=== PATIENT | male | born 1955 | race Two or more races ===

== ENCOUNTER 2018-11-08 08:54 | Emergency (ER) | payer SELFPAY ==
[~2018-11-08] VITALS: Ht 182.9 cm; Wt 90.0 kg
[2018-11-08 08:59] VITALS: Ht 182.9 cm; Wt 90.0 kg
--- NOTE | 2018-11-08 10:44 | ERD ---
ER Documentation Chief Complaint Chief Complaint abd pain and diarrhea for the past few days, no distress now HPI This is a 63-year-old male with a past medical history of hypertension, COPD, bipolar disorder, schizophrenia who is presenting for a few episodes of nausea, a few episodes of nonbilious nonbloody vomiting and a few episodes of loose watery nonbloody stool. The patient reports that he has had these symptoms chronically, and this feels like an exacerbation of his symptoms in the past. The patient is currently in no distress, and reports that it feels like his symptoms are improving. The patient has no abdominal pain. He has no dysuria or hematuria or urgency or frequency. The patient does report homelessness, but he does not want resources. The patient does report a history of psychiatric illness. He currently denies any suicidal or homicidal ideations. He denies any auditory or visual hallucinations. The patient denies feeling sick recently. The patient denies fever or chills. The patient has had no headache or vision changes. The patient does not endorse neck or back pain. The patient denies lightheadedness or dizziness. The patient has had no chest pain or trouble breathing. The patient has had no focal deficits. The patient has had no weakness or numbness or tingling to the face or extremities. ROS All systems reviewed and are negative except as per history of present illness. Allergies Allergies: Coded Allergies: pseudoephedrine (Verified Allergy, Unknown, TACHYCARDIA, 11/08/18) Uncoded Allergies: TURKEY (Allergy, Unknown, 11/08/18) PMhx/Soc History of Surgery: Yes (BACK , HERNIA REPAIR ) Anesthesia Reaction: No Hx Neurological Disorder: No Hx Respiratory Disorders: Yes (COPD , ASTHMA ) Hx Cardiac Disorders: Yes (HTN ) Hx Psychiatric Problems: Yes (BIPOLAR , SCHIZOPHRENIA ) Hx Miscellaneous Medical Probl: Yes (DM ) Hx Alcohol Use: Yes Hx Substance Use: Yes (COCAINE ) Hx Tobacco Use: Yes Smoking Status: Current every day smoker FmHx Family History: No diabetes Physical Exam Vitals Vital Signs Date Temp Pulse Resp B/P (MAP) Pulse Ox O2 O2 Flow FiO2 Time Delivery Rate 11/08/18 98.2 89 20 159/87 96 08:59 (111) Physical Exam Const: No apparent distress, well-developed, well-nourished Head: Normocephalic, Atraumatic Eyes: Normal Conjunctiva. Extraocular movements intact. Pupils equal, round and reactive to light ENT: Normal External Ears, Nose and Mouth. Neck: Full range of motion. No meningismus. Resp: Clear to auscultation bilaterally, No wheezes, rales or rhonchi Cardio: Regular rate and rhythm. No murmurs, rubs or gallops Abd: Soft, non tender, non distended. Normal bowel sounds Skin: No petechiae or rashes Back: No midline tenderness. No CVA tenderness Ext: No cyanosis, or edema Neur: Awake and alert, oriented 4. Cranial nerves intact. No facial droop. Normal strength, sensation and coordination. Psych: Normal Mood and Affect Result Diagram: 11/08/1892211/08/18922 Results 24 hrs Laboratory Tests Test 11/08/18 09:23 White Blood Count 5.2 10^3/ul Red Blood Count 3.71 10^6/ul Hemoglobin 11.0 g/dl Hematocrit 34.7 % Mean Corpuscular Volume 93.5 fl Mean Corpuscular Hemoglobin 29.6 pg Mean Corpuscular Hemoglobin Concent 31.7 g/dl Red Cell Distribution Width 15.4 % Platelet Count 251 10^3/UL Mean Platelet Volume 10.3 fl Immature Granulocytes % 0.200 % Neutrophils % 58.7 % Lymphocytes % 31.9 % Monocytes % 6.5 % Eosinophils % 2.5 % Basophils % 0.2 % Nucleated Red Blood Cells % 0.0 /100WBC Immature Granulocytes # 0.010 10^3/ul Neutrophils # 3.1 10^3/ul Lymphocytes # 1.7 10^3/ul Monocytes # 0.3 10^3/ul Eosinophils # 0.1 10^3/ul Basophils # 0.0 10^3/ul Nucleated Red Blood Cells # 0.0 10^3/ul Urine Color YELLOW Urine Clarity SLIGHTLY CLOUDY Urine pH 7.0 Urine Specific [place] 1.018 Urine Ketones NEGATIVE mg/dL Urine Nitrite NEGATIVE mg/dL Urine Bilirubin NEGATIVE mg/dL Urine Urobilinogen NEGATIVE mg/dL Urine Leukocyte Esterase NEGATIVE Isma/ul Urine Microscopic RBC 1 /HPF Urine Microscopic WBC 1 /HPF Urine Hemoglobin NEGATIVE mg/dL Urine Glucose NEGATIVE mg/dL Urine Total Protein NEGATIVE mg/dl Sodium Level 143 mmol/L Potassium Level 4.2 mmol/L Chloride Level 106 mmol/L Carbon Dioxide Level 29 mmol/L Anion Gap 8 Blood Urea Nitrogen 14 mg/dl Creatinine 0.77 mg/dl Est Glomerular Filtrat Rate mL/min > 60 mL/min Glucose Level 143 mg/dl Calcium Level 9.6 mg/dl Total Bilirubin 0.0 mg/dl Direct Bilirubin 0.00 mg/dl Indirect Bilirubin 0.0 mg/dl Aspartate Amino Transf (AST/SGOT) 37 IU/L Alanine Aminotransferase (ALT/SGPT) 16 IU/L Alkaline Phosphatase 92 IU/L Total Protein 7.2 g/dl Albumin 4.2 g/dl Globulin 3.00 g/dl Albumin/Globulin Ratio 1.40 Lipase 86 U/L Procedures/MDM MDM The patient's presentation warrants further investigation. Previous medical records, if available, were reviewed. LABS The patient's laboratory testing was obtained and reviewed. No emergent treatment was required unless described below. CBC: No E/o of systemic infection or severe anemia or thrombocytopenia. Mild normocytic anemia, not emergent. Chemistry: No E/o severe acidosis or alkalosis or renal failure or liver disease or diabetic ketoacidosis Lipase: No E/o pancreatitis Urine: No E/o acute infection or hematuria TREATMENT/DISPOSITION The patient presents with abdominal pain. He reports nausea, vomiting and diarrhea. He does not endorse any bloody vomiting or bloody stooling. I have low suspicion for a GI bleed. The patient does not have any evidence of peritonitis. The patient does not have clinical symptoms concerning for mese nteric ischemia or ischemic colitis. The patient does not have right upper quadrant tenderness, and I have low suspicion for gallstones, cholecystitis or biliary colic. The patient does not have any epigastric pain. I have low suspicion for gastritis, PUD or GERD. The patient does not have left upper quadrant tenderness. I have low suspicion for pancreatitis. The patient does not have any right lower quadrant tenderness, or periumbilical tenderness. I have low suspicion for appendicitis. The patient does not have suprapubic tenderness. I have decreased suspicion for cystitis. The patient does not have any left lower quadrant tenderness, and I have low suspicion for diverticulosis or diverticulitis. The patient does not have any flank tenderness. The patient does not have gross hematuria. I have decreased suspicion for nephrolithiasis or renal colic. The patient does not have any palpable pulsatile mass or severe abdominal pain radiating to the back. I have low suspicion for aortic aneurysm, dissection or rupture. The patient was offered Zofran and IV fluids in the emergency department, but he declined. His symptoms drastically improved, and the patient wanted to be di scharged. The patient reports that he needs to make a train. The patient does have a history of psychiatric illness, but the patient does not have symptoms concerning for acute psychosis. I do not believe the patient requires further assessment from a psychiatric standpoint. The patient may foll ow-up as needed with his physicians in an outpatient setting. The patient is homeless. The patient is medically stable for discharge. Social work was called to evaluate the patient. The patient does not want any homeless resources at this time. Upon reevaluation of the patient, symptoms have improved. No emergent diagnoses were identified. At this time, I feel that the patient stable for discharge. The patient was instructed to follow-up with a primary care physician in 1-3 days. The patient will be given strict precautions with which to return to the emergency department. Prescriptions: None The patient's blood pressure was elevated at greater than 120/80 while in the emergency department. The patient was otherwise stable with no evidence of hypertensive urgency or emergency. The patient does not require admission for blood pressure control. I have discussed with the patient the risks of hypertension. I have instructed the patient to return to the ER for any new or worsening symptoms including chest pain, shortness of breath, headache, blurred vision, confusion, nausea, vomiting or LOC. I have advised the patient to follow up with the primary care physician for outpatient monitoring and treatment for hypertension in 1-3 days. Disclaimer: Inadvertent spelling and grammatical errors are likely due to EHR/dictation software use and do not reflect on the overall quality of patient care. Note that the electronic time recorded on this note does not necessarily reflect the actual time of the patient encounter. Departure Diagnosis: Primary Impression: Nausea vomiting and diarrhea Additional Impressions: Abdominal cramping Normocytic anemia Condition: Stable TANIKA SILVA MD Nov 08, 2018 10:44
[2018-11-08 10:49] VITALS: BP 143/78; PULSE 78; RESP 18
== END 2018-11-08 10:55 | disposition home or self-care (01) ==
LOC: E/R 08:54
DX: R11.2 Nausea with vomiting, unspecified (principal); R19.7 Diarrhea, unspecified; D64.9 Anemia, unspecified; I10 Essential (primary) hypertension; J44.9 Chronic obstructive pulmonary disease, unspecified; J45.909 Unspecified asthma, uncomplicated; E11.9 Type 2 diabetes mellitus without complications; F17.210 Nicotine dependence, cigarettes, uncomplicated
CPT/HCPCS: 36415; 80053; 81001; 81003; 83690; 85025; 99283

== ENCOUNTER 2019-03-12 05:55 | Emergency (ER) | payer MEDICARE, OTHER ==
[~2019-03-12] VITALS: Ht 167.6 cm; Wt 90.9 kg
[2019-03-12 06:09] VITALS: BP 141/84; PULSE 96; RESP 18; Ht 167.6 cm; Wt 90.9 kg
--- NOTE | 2019-03-12 06:52 | PSY ---
Date/Time of Note Date/Time of Note DATE: 03/12/19 TIME: 06:43 Psychiatric Subjective Eval Consent Pt consented to telemedicine: Yes Subjective Evaluation Patient location: emergency Chief Complaint: [id number],cut self w/ razor blade,out of psych meds,hx bipolar,PTSD Medical history Problems Medical Problems: (1) Abdominal cramping Status: Acute (2) Nausea vomiting and diarrhea Status: Acute (3) Normocytic anemia Status: Acute Allergies: Coded Allergies: pseudoephedrine (Verified Allergy, Unknown, TACHYCARDIA, 11/08/18) turkey (Verified Allergy, Unknown, 03/12/19) Assessment and Plan Recommendation/Plan Discharge Disposition: Psychiatric inpatient Legal Status: Place involuntary hold Assessment Additional comments: IDENTIFYING INFORMATION: 63 year old CM patient who is currently located at the hospital and for whom psychiatric consultation was requested. SOURCES OF INFORMATION: The patient who appears to be somewhat reliable and the medical records; the nursing staff. CHIEF COMPLAINT: "voices". HISTORY OF PRESENT ILLNESS: The patient was interviewed via telemedicine in the presence of and under the supervision of nursing staff of the hospital. The consent to conducting this interview via telemedicine was obtained by the nursing staff at the hospital. LIAT Hamilton reports that the patient presented with AH telling him to hurt himself. The patient reports having AH telling him to cut himself, burn things and . Admits to paranoid delusions. The patient denies using alcohol heavily or regularly. The patient reports using meth in the recent past. Last use was 2 weeks ago. The patient denies using any other substances. In terms of past psychiatric history, the patient reports having a history of past psychiatric hospitalizations. The patient reports having a history of past suicide attempts. PAST MEDICAL HISTORY: none. CURRENT MEDICATIONS: depakote, seroquel, haldol, trazodone- noncompliant since 1 week ago. ALLERGIES TO MEDICATIONS: pseudoephedine. LABORATORY TESTS: pending. SOCIAL HISTORY: homeless, on disability, , lost one son of a drug overdose. REVIEW OF SYSTEMS: Constitutional (e.g., fever, weight loss): negative; Eyes, Ears, Nose, Mouth, Throat: negative; Cardiovascular: negative; Respiratory: negative; Gastrointestinal: negative; Genitourinary: negative; Musculoskeletal: negative; Integumentary (skin and/or breast): negative; Neurological: negative; Psychiatric: as per HPI; Endocrine: negative; Hematologic/Lymphatic: negative; Allergic/Immunologic: negative. MENTAL STATUS EXAMINATION: General Appearance and Behavior: Calm, cooperative with the interview, pleasant with the current interviewer, makes fair eye contact, fairly groomed, no abnormal movements noted, Speech: Regular rate, regular rhythm, normal latency, normal volume, somewhat decreased amount, Flow of thought: sequential, logical, goal-directed, Content of thought: + auditory hallucinations, no visual hallucinations, + delusions, positive for suicidal ideation; no homicidal ideation, Mood: "depressed", Affect: dysthymic, dysphoric, not reactive, Attention: normal based on the interview, Insight: fair, Judgment: poor, Memory: normal based on the interview, Sensorium: alert and oriented to person, place and date. ASSESSMENT: The patient's presentation and history are consistent with the diagnosis of unspecified psychotic disorder, stimulant use disorder. The patient presents with depressive and psychotic symptoms in the context of medication noncompliance, psychosocial stressors and substance use. PLAN: - Medication management: Would start Seroquel 100 mg by mouth at bedtime, Depakote 500 mg by mouth at bedtime. Would start haloperidol 5 mg IM PRN severe agitation q4 hours. Would start diphenhydramine 50 mg IM PRN severe agitation q4 hours. Would start lorazepam 2 mg IM PRN severe agitation q4 hours Will defer to the inpatient psychiatry team for other medication changes. - Labs: Please check CBC, CMP, Alcohol level, UDS. - Psychotherapy: Provided supportive psychotherapy and psychoeducation. - Disposition: Would recommend involuntary admission to the inpatient psychiatric unit given the severity of the patient's psychiatric condition and the fact that the patient is an imminent danger to self and/or others so long as the patient has been cleared medically for admission to psychiatry. Inpatient psychiatric admission is at this time the least restrictive environment where the patient can receive the psychiatric care that is needed. Would place on suicide precautions. The patient fulfills criteria for being placed on an involuntary hold for being a danger to self or others or gravely disabled due to a psychiatric disorder. Discussed about the above plan with Dr. Neville. RAMU KIRKLAND MD Mar 12, 2019 06:52
--- NOTE | 2019-03-12 07:10 | ERD ---
ER Documentation Chief Complaint Chief Complaint [id number],cut self w/ razor blade,out of psych meds,hx bipolar,PTSD HPI 63-year-old gentleman history of bipolar disorder, schizoaffective disorder presents to the emergency room with a plan for suicide. The patient states that his hearing voices, they are telling to hurt himself. He has suicidal ideation with a plan to cut himself with a razor. He was found with a razor at a local restaurant. Patient denies any fevers, chills, chest pain, shortness of breath. He feels like he needs psychiatric help. ROS All systems reviewed and are negative except as per history of present illness. Allergies Allergies: Coded Allergies: pseudoephedrine (Verified Allergy, Unknown, TACHYCARDIA, 11/08/18) turkey (Verified Allergy, Unknown, 03/12/19) PMhx/Soc History of Surgery: Yes (BACK , HERNIA REPAIR ) Anesthesia Reaction: No Hx Neurological Disorder: No Hx Respiratory Disorders: Yes (COPD , ASTHMA ) Hx Cardiac Disorders: Yes (HTN ) Hx Psychiatric Problems: Yes (BIPOLAR , SCHIZOPHRENIA ) Hx Miscellaneous Medical Probl: Yes (DM ) Hx Alcohol Use: Yes Hx Substance Use: Yes (COCAINE ) Hx Tobacco Use: Yes FmHx Family History: No diabetes Physical Exam Vitals Vital Signs Date Temp Pulse Resp B/P (MAP) Pulse Ox O2 O2 Flow FiO2 Time Delivery Rate 03/12/19 98.4 96 18 141/84 96 06:09 (103) Physical Exam General: Well developed, well nourished, no acute distress Head: Normocephalic, atraumatic. Eyes: EOM intact ENT: Moist mucous membranes Neck: Full ROM Respiratory: No respiratory distress Cardiovascular: Well perfused distally Abdominal: Nondistended : Deferred MSK: No edema, no unilateral swelling, 5/5 strength Neurologic: Alert and oriented, moving all extremities, normal speech, steady gait Skin: No rash Psych: Moderate insight, auditory hallucinations, suicidal ideation with plan Result Diagram: 03/12/19 0740 03/12/19 0740 Results 24 hrs Laboratory Tests Test 03/12/19 07:40 White Blood Count 5.2 10^3/ul Red Blood Count 3.78 10^6/ul Hemoglobin 10.7 g/dl Hematocrit 33.2 % Mean Corpuscular Volume 87.8 fl Mean Corpuscular Hemoglobin 28.3 pg Mean Corpuscular Hemoglobin Concent 32.2 g/dl Red Cell Distribution Width 15.2 % Platelet Count 203 10^3/UL Mean Platelet Volume 10.9 fl Immature Granulocytes % 0.400 % Neutrophils % 66.6 % Lymphocytes % 22.8 % Monocytes % 9.0 % Eosinophils % 1.0 % Basophils % 0.2 % Nucleated Red Blood Cells % 0.0 /100WBC Immature Granulocytes # 0.020 10^3/ul Neutrophils # 3.5 10^3/ul Lymphocytes # 1.2 10^3/ul Monocytes # 0.5 10^3/ul Eosinophils # 0.1 10^3/ul Basophils # 0.0 10^3/ul Nucleated Red Blood Cells # 0.0 10^3/ul Sodium Level 144 mmol/L Potassium Level 4.1 mmol/L Chloride Level 105 mmol/L Carbon Dioxide Level 30 mmol/L Anion Gap 9 Blood Urea Nitrogen 22 mg/dl Creatinine 0.63 mg/dl Est Glomerular Filtrat Rate mL/min > 60 mL/min Glucose Level 133 mg/dl Calcium Level 9.4 mg/dl Total Bilirubin 0.3 mg/dl Direct Bilirubin 0.00 mg/dl Indirect Bilirubin 0.3 mg/dl Aspartate Amino Transf (AST/SGOT) 15 IU/L Alanine Aminotransferase (ALT/SGPT) 11 IU/L Alkaline Phosphatase 70 IU/L Total Protein 7.0 g/dl Albumin 3.9 g/dl Globulin 3.10 g/dl Albumin/Globulin Ratio 1.25 Ethyl Alcohol Level < 10.0 mg/dl Current Medications Medications Dose Sig/Gabriele Start Time Status Last (Trade) Ordered Route PRN Stop Time Admin Dose Reason Admin Quetiapine 100 mg QHS PO 03/12/19 Fumarate 21:00 (Seroquel) Valproic 500 mg QHS PO 03/12/19 Acid 21:00 (Depakene) Procedures/MDM EKG/DIAGNOSTIC IMAGING: None Required LAB INTERPRETATION: No acute process MEDICAL DECISION MAKING: The patient's presentation is consistent with underlying psychiatric illness and likely exacerbation of this illness and/or psychosis. I have a much lower clinical concern for delirium or acute organic pathology such as toxicologic, metabolic, ischemic, intracranial hemorrhage, infectious process. However, we must rule this out prior to relying a diagnosis of underlying psychiatric illness. The patient's workup will include medical screening examination and appropriate laboratory testing. If the patient's medical examination does not reveal acute organic pathology the patient will be medically cleared for psychiatric evaluation. ER COURSE: * Please officers and place the patient on a 5150 hold * The patient's evaluation does not suggest an acute organic pathology. At this time I believe the patient's presentation is very consistent with underlying psychiatric illness. The patient is medically cleared for psychiatric evaluation. CONSULTATION: Psychiatric consultation: Telemetry medicine psychiatry has been consulted on this case to evaluate the patient for possible acute psychiatric illness that would require inpatient hospitalization. DISPOSITION PLAN: Telemetry medicine psychiatry recommends 5150 hold and inpatient hospitalization. They also recommend Seroquel 100 nightly and Depakote 500 nightly which have been ordered. Patient is pending placement at this time. Departure Diagnosis: Primary Impression: Suicidal ideation Condition: DOMINIQUE Leahy MD Mar 12, 2019 07:10
[2019-03-12] MEDS ORDERED: QUETIAPINE 100 MG TAB PO SCH (21:00)
[2019-03-12] MEDS ORDERED: VALPROIC ACID 250 MG CAP PO SCH (21:00)
== END 2019-03-12 10:40 ==
LOC: E/R 05:55
DX: R45.851 Suicidal ideations (principal); J44.9 Chronic obstructive pulmonary disease, unspecified; I10 Essential (primary) hypertension; E11.9 Type 2 diabetes mellitus without complications; Z87.891 Personal history of nicotine dependence
CPT/HCPCS: 80053; 80307; 85025